=== PATIENT | male | born 1935 | race Caucasian/White ===

== ENCOUNTER 2021-05-15 07:13 | Observation (INO) ==
[2021-05-15 07:54] LABS: Basophils # 0.1 K/mcL (0.0-0.2); Eosinophils # 0.2 K/mcL (0.0-0.6); Eosinophils % 1.9 %; Hematocrit 43.8 % (37.5-50.1); Hemoglobin 14.5 g/dL (12.9-16.9); Immature Granulocytes % 0.4 % (0-4); Lymphocytes # 1.5 K/mcL (0.6-4.6); Mean Corpuscular HGB Conc 33.1 g/dL (31.6-35.5); Mean Corpuscular Hemoglobin 32.2 pg (28.0-33.3); Mean Corpuscular Volume 97.3 fL (83.0-100.0); Mean Platelet Volume 9.7 fL (9.4-12.4); Monocytes # 0.7 K/mcL (0.0-1.3); Monocytes % 7.6 %; Neutrophils # 6.7 K/mcL (1.6-8.9); Platelet Count 163 K/mcL (140-400); Red Cell Distribution Width 15.2 % (11.5-14.5); Segmented Neutrophils % 73.1 %; White Blood Count 9.1 K/mcL (4.3-11.1)
[2021-05-15 08:10] LABS: Albumin 4.1 g/dL (3.5-5.7); Albumin/Globulin Ratio 1.2 (1.1-2.2); Bilirubin,Total 1.2 mg/dL (0.3-1.0); Calcium 10.6 mg/dL (8.6-10.3); Globulin 3.5 g/dL (2.4-3.5); Potassium 3.8 mEq/L (3.5-5.1); Total Protein 7.6 g/dL (6.4-8.9)
[2021-05-15] MEDS ORDERED: 0.9 % Sodium Chloride 1,000 ML IV ONE (11:35)
[2021-05-15] MEDS ORDERED: Melatonin 3 MG TABLET PO PRN (13:17)
[2021-05-15] MEDS ORDERED: Ondansetron ODT 4 MG TAB.RAPDIS SL PRN (13:17)
[2021-05-15] MEDS ORDERED: Naloxone 0.4 MG/ML INJ IVP PRN (13:17)
[2021-05-15] MEDS ORDERED: *HR* Dextrose 50 % in Water (Syg) 50 ML SYRINGE IVP PRN (13:23)
[2021-05-15] MEDS ORDERED: D5% in Water 1,000 ML IVC PRN (13:23)
[2021-05-15] MEDS ORDERED: Dextrose 4 GM Chewable Tablets PO PRN ×2 (13:23)
[2021-05-15] MEDS ORDERED: 0.9 % Sodium Chloride 1,000 ML IVC SCH (15:15)
[2021-05-15] MEDS: Ringers Solution, Lactated 1,000 ML IVC SCH (15:16)
[2021-05-15] MEDS ORDERED: Acetaminophen 325 MG TABLET PO PRN (15:24)
[2021-05-15] MEDS ORDERED: Bisacodyl 10 MG RECTAL SUPPOSITORY RC PRN (15:24)
[2021-05-15 16:00] LABS: Protein/Creatinine Ratio,Urine 0.24 mg/mg (0.00-0.20); Sodium, Urine 30.3 mEq/L
[2021-05-15 16:07] LABS: Bacteria,Urine Few per hpf (None-Few); Bilirubin,Urine Negative (Negative); Blood,Urine Moderate (Negative); Clarity,Urine Clear (Clear); Color,Urine Yellow (Yellow); Glucose,Urine (UA) Normal (Normal); Hyaline Casts,Urine Moderate per lpf (None Seen); Ketones,Urine Negative (Negative); Leukocyte Esterase,Urine Small (Negative); Mucus,Urine Few per lpf (None-Few); Nitrite,Urine Negative (Negative); PH,Urine 5.5 pH Units (5.0-8.0); Protein,Urine Trace mg/dL (Neg-Trace); RBC,Urine 30-50 per hpf (0-3); Specific Gravity,Urine 1.019 (1.010-1.025); Squamous Epithelial Cell,Urine Few per hpf (None-Few); Urobilinogen,Urine Normal (Normal)
[2021-05-15] MEDS: Insulin LISPRO 300 UNITS/3 ML VIAL SUBQ SCH ×2 (17:05→20:36)
[2021-05-15 17:21] LABS: Uric Acid 12.1 mg/dL (2.3-7.6)
[2021-05-16] MEDS: Ringers Solution, Lactated 1,000 ML IVC SCH (04:02)
[2021-05-16 06:55] LABS: Hematocrit 40.4 % (37.5-50.1); Hemoglobin 13.6 g/dL (12.9-16.9); Mean Corpuscular HGB Conc 33.7 g/dL (31.6-35.5); Mean Corpuscular Hemoglobin 32.1 pg (28.0-33.3); Mean Corpuscular Volume 95.3 fL (83.0-100.0); Mean Platelet Volume 9.7 fL (9.4-12.4); Platelet Count 137 K/mcL (140-400); Red Blood Count 4.24 M/mcL (4.19-5.50); Red Cell Distribution Width 15.1 % (11.5-14.5); White Blood Count 9.4 K/mcL (4.3-11.1)
[2021-05-16 07:12] LABS: Calcium 10.2 mg/dL (8.6-10.3); Magnesium 2.4 mg/dL (1.6-2.6); Phosphorous 2.8 mg/dL (2.7-4.5); Potassium 3.7 mEq/L (3.5-5.1)
[2021-05-16] MEDS: Insulin LISPRO 300 UNITS/3 ML VIAL SUBQ SCH ×4 (07:24→19:05)
[2021-05-16] MEDS: Cholecalciferol (D-3) 1,000 UNIT (25MCG) TABLET PO SCH (09:53)
[2021-05-16] MEDS: Aspirin Enteric Coated 81 MG Tablet PO SCH (09:53)
[2021-05-16] MEDS: BuPROPion XL (24 HR) 150 MG TABLET PO SCH (09:53)
[2021-05-17 01:28] LABS: Calcium 10.1 mg/dL (8.6-10.3); Potassium 3.8 mEq/L (3.5-5.1)
[2021-05-17 08:11] VITALS: BP 165/103; PULSE 71; TEMP 97.6; O2SAT 97
[2021-05-17] MEDS: Insulin LISPRO 300 UNITS/3 ML VIAL SUBQ SCH ×3 (08:17→13:18)
[2021-05-17] MEDS: Aspirin Enteric Coated 81 MG Tablet PO SCH (09:22)
[2021-05-17] MEDS: BuPROPion XL (24 HR) 150 MG TABLET PO SCH (09:23)
[2021-05-17] MEDS: Cholecalciferol (D-3) 1,000 UNIT (25MCG) TABLET PO SCH (09:23)
== END 2021-05-17 15:28 | disposition home health service (06) ==
LOC: 2ANU 07:13 → EMEROOARM 07:13 → SUATTDRO 12:24 → 2ANU 14:04
PROVIDERS: ADMIT Student in an Organized Health Care Education/Training Program; ATTEND Pharmacist